=== PATIENT | female | born 1965 | race Caucasian/White ===

== ENCOUNTER → 2020-04-06 08:07 | Outpatient (CLI) | payer BC, SELFPAY ==
[2018-08-02 09:36] VITALS: BMI 27.8
[2020-04-06 08:55] LABS: CRP, High Sensitivity Cardiac 5.81 mg/L
== END ==
PROVIDERS: PCP Family Medicine
DX: E78.5 Hyperlipidemia, unspecified (principal)
CPT/HCPCS: 36415; 84132; 86141

== ENCOUNTER → 2020-07-07 07:40 | Outpatient (CLI) | payer BC, SELFPAY ==
[2018-08-02 09:36] VITALS: BMI 27.8
[2020-07-07 08:47] LABS: AST(SGOT) 15 U/L (15-37); Alanine Aminotransfer ALT/SGPT 41 U/L (13-56); Albumin, Serum 3.8 g/dL (3.2-5.0); Alkaline Phosphatase 133 U/L (45-117); Anion Gap 5 (5-15); BUN 11 mg/dL (7-18); BUN/Creat Ratio 14.8 RATIO (10-20); Calcium,Total 9.1 mg/dL (8.5-10.1); Chloride 106 mmol/L (98-107); Cholesterol 194 mg/dL (200); Creatinine, Serum 0.74 mg/dL (0.55-1.02); EST Glomerular Filtration Rate 86 mL/min (>60); Est Glom Filt Rate - Afr Amer 104 mL/min (>60); Globulin 3.8 g/dL (2.2-4.2); Glucose 104 mg/dL (74-106); High Density Lipoprotein 51 mg/dL; Protein, Total 7.6 g/dL (6.4-8.2); Sodium Level 138 mmol/L (136-145); Triglycerides 284 mg/dL; Very Low Density Lipoprotein 57 mg/dL (5-40)
== END ==
PROVIDERS: PCP Family Medicine; Referring Provider Family Medicine; Visit Provider Family Medicine
DX: E78.2 Mixed hyperlipidemia (principal)
CPT/HCPCS: 36415; 80053; 80061

== ENCOUNTER 2020-09-22 13:03 | Emergency (ER) | payer BC, SELFPAY ==
[2018-08-02 09:36] VITALS: BMI 27.8
[2020-09-22 13:04] VITALS: BP 164/98; PULSE 118; RESP 18; TEMP 36.4; O2SAT 96; BMI 30.9
--- NOTE | 2020-09-22 14:30 | EKG12_ITS ---
Test Reason : CP Blood Pressure : / mmHG Vent. Rate : 108 BPM Atrial Rate : 108 BPM P-R Int : 174 ms QRS Dur : 090 ms QT Int : 336 ms P-R-T Axes : 071 079 038 degrees QTc Int : 450 ms Sinus tachycardia Possible Left atrial enlargement Borderline ECG Confirmed by KYLEE REGALADO, TOMAS ([id number]), editorial clerk JON DAVISON ([id number]) on 09/23/2020 12:42:40 PM Referred By: WILLARD/LYLY Confirmed By:TOMAS PICHARDO MD
[2020-09-22 14:33] VITALS: O2SAT 98
--- NOTE | 2020-09-22 14:38 | NURSING ---
NO OLD EKGS
[2020-09-22 14:55] LABS: Absolute Lymphocyte Count 1.57 X10^3/uL (0.83-4.51); Absolute Neutrophil Count 6.1 X10^3/uL (2.0-7.7); Basophil# 0.05 X10^3/uL; Basophil% 0.6 % (0-1); Eosinophil# 0.04 X10^3/uL; Eosinophils% 0.5 % (0-5); Hemoglobin 14.5 g/dL (12.0-15.0); Lymphocyte # 1.57 X10^3/ul (0.83-4.51); Lymphocyte % 18.8 % (19-41); Mean Corpuscular Hgb 27.1 pg (27.0-32.0); Mean Corpuscular Volume 82.1 fL (81-99); Mean Platelet Vol. 9.1 fl (6.2-12.0); Monocyte# 0.56 X10^3/uL; Monocyte% 6.7 % (0-10); NRBC Flagged by Analyzer 0 % (0-5); Neutrophil # 6.08 X10^3/uL (2.7-7.7); Neutrophil % 72.8 % (47-70); Platelet Count 328 K/mm3 (150-450); RBC Distribution Width CV 13.2 % (11.6-14.6); RBC Distribution Width SD 39.3 fl (35.1-43.9); Red Blood Count 5.36 M/mm3 (4.2-5.4); White Blood Count 8.4 K/mm3 (4.4-11.0)
--- NOTE | 2020-09-22 15:03 | EX.ED.DYSGE1 ---
HPI History of Present Illness Chief Complaint: General Illness Detail of Chief Complaint: Chest pain off and on for a week and a half Informant: patient Narrative Narrative: Patient presents to the emergency department with intermittent chest discomfort just right of center that will come on and intensify and then go away and only lasts a minute or so. Patient states the pain is not exertional. She has not noted any association with breathing or movement. Patient has a hard time describing the discomfort. Today she developed some burning in the center of her chest and noticed that her blood pressure was elevated at work so she comes in for evaluation. She denies recent travel or surgery. 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 Patient denies cough or fever. She has history of high cholesterol. Her father had heart attack in his 60s. Patient denies any radiation of the pain. She denies being diaphoretic. She denies any real shortness of breath. Prior similar symptoms: No PFSH PFSH Medical History (Updated 09/22/20 @ 16:[address] Cb Garcia DO) Arthritis Back pain Bone fracture High cholesterol History of migraine headaches Neck pain Thyroid disease Home Medications atorvastatin 40 mg PO DAILY 09/22/20 [History Last Taken Unknown] Allergy/AdvReac Type Severity Reaction Status Date / Time bee venom protein (honey bee) Allergy Mild X Verified 09/22/20 13:07 erythromycin base Allergy Vomiting Verified 09/22/20 13:07 morphine Allergy Itching Verified 09/22/20 13:07 Influenza Virus Vaccines AdvReac Other Verified 09/22/20 13:07 Family History Father No problems noted. Grandmother Heart disease Surgical History (Updated 09/22/20 @ 14:35 by Franci Patel) [address] [facility] FOOT CYST REMOVAL BREAST AUGMENTATION 1998 History of abdominoplasty PARTIAL HYSTERECTOMY 200 Social History Smoking Status: Former smoker alcohol intake: current alcohol intake frequency: holidays/special occasions only details: SOCIAL substance use type: does not use what type of physical activity do you participate in: none seatbelt use: always do you feel safe at home: Yes additional social history: Spouse Joe Nursing directive [place] ROS ROS ED Constitutional Constitutional ED: Reports systems reviewed and no addt'l complaints, except as documented; Denies body ache(s), change in weight or chills Eyes Eyes: Denies acute decrease in peripheral vision, change in vision, double vision or loss of vision ENT ENT ED: Reports none; Denies ear pain, lip swelling, loss taste/smell, neck pain, otalgia or sore throat Cardiovascular Cardiovascular: Reports none and chest pain; Denies abdominal pain, chest pain with activity, leg edema, lightheadedness, palpitations, rapid heart rate or syncope Respiratory/Chest Respiratory/Chest: Reports none; Denies change in mental status, dry cough, dyspnea, hemoptysis, shortness of breath at rest or shortness of breath with exertion Gastrointestinal Gastrointestinal: Reports none; Denies abdominal pain, change in stool character, diarrhea, hematemesis, hematochezia, melena, rectal bleeding or vomiting Genitourinary Genitourinary ED: Reports none; Denies abdominal discomfort, anuria, dysuria, genital pain or polyuria Musculoskeletal Musculoskeletal: Reports none; Denies arthralgias, back pain, difficulty walking, extremity pain, muscle weakness or myalgias Integumentary Reports none; Denies abscess or rash Neurologic Neurologic: Reports none; Denies abnormal gait, confusion, focal weakness, frequent falls, headache(s), loss of vision, numbness, paresthesias, radicular pain, vertigo or weakness Psychiatric Psychiatric: Reports systems reviewed and no addt'l complaints, except as documented and none; Denies behavioral changes, confusion, difficulty concentrating, hallucinations, suicidal ideation, tactile hallucinations or visual hallucinations Endocrine Endocrinology: Denies none, cold intolerance, excessive sweating, fatigue or heat intolerance Hematologic/Lymphatic Hematologic/Lymphatic: Reports none; Denies anemia, easy bleeding or easy bruising Allergic/Immunologic Allergic/Immunologic ED: Denies as per HPI, none, lip swelling, mouth swelling, throat swelling, tongue swelling or hives EXAM Physical Exam Const Vital Signs: 09/22/20 13:04 09/22/20 14:33 09/22/20 15:34 Temperature 97.6 F L Temperature Source Temporal Pulse Rate 118 H 111 H Respiratory Rate 18 16 Respiratory Effort Normal Non-Labored Respiratory Pattern Normal Blood Pressure 164/98 H 160/85 H Blood Pressure Mean 120 110 Pulse Ox 96 98 95 Oxygen Delivery Method Room Air Room Air Room Air Positive well nourished and well developed General Appearance ED: well developed and NAD HEENT Reports TM's clear and moist mucous membranes normocephalic and atraumatic; Negative for trauma or tenderness Tympanic Membrane ED: Yes TM's clear Eyes PERRL and EOMs intact bilaterally General Eye ED: Negative for pale conjunctiva or scleral icterus Neck no lymphadenopathy, supple and no JVD General: Negative for tenderness Chest Wall inspection of chest normal and palpation of chest normal Chest: Negative for tenderness Resp normal respiratory effort and clear to auscultation bilaterally Effort and Inspection: Negative for respiratory distress or pain with movement Auscultation: Negative for rhonchi, wheezes or diminished lung sounds Cardio regular rate, regular rhythm, S1 normal heart sound, S2 normal heart sound and no murmurs Peripheral Pulses: pulses 2+ throughout GI normal to inspection, nondistended, normoactive bowel sounds, soft to palpation, non-tender, non-distended and no masses Back/Spine no CVA tenderness and no thoracic nor lumbar tenderness Extremity normal to inspection General Extremety ED: Negative for edema General Extremity: Negative for edema Neuro oriented x3, CN's II-XII intact bilaterally, no sensory deficits noted and gait normal Sensorium / Orientation: awake, alert, oriented to person, oriented to place and oriented to time Motor Exam: strength 5/5 throughout and strength abnormal Psych mental status grossly normal Skin no rashes or lesions noted and no wounds MDM MDM MDM Narrative Medical decision making narrative: Patient has heart score of 1. Patient's chest pain is atypical. At this point I do not feel she requires admission or further work-up. Patient advised to follow-up with her primary care physician within next 3 to 5 days. Patient advised to return if exertional chest pain, shortness of breath, or condition should worsen anyway. Lab Data Attestation: I reviewed the patient's lab results. Labs: Laboratory Results - last 24 hr 09/22/20 09/22/20 09/22/20 14:47 14:47 15:33 WBC 8.4 RBC 5.36 Hgb 14.5 Hct 44.0 MCV 82.1 MCH 27.1 MCHC 33.0 RDW Std Deviation 39.3 RDW Coeff of Jase 13.2 Plt Count 328 MPV 9.1 Immature Gran % (Auto) 0.600 Neut % (Auto) 72.8 H Lymph % (Auto) 18.8 L [place] % (Auto) 6.7 Eos % (Auto) 0.5 Baso % (Auto) 0.6 Absolute Neuts (auto) 6.1 Absolute Lymphs (auto) 1.57 Nucleated RBC % 0 D-Dimer Quant (PE/DVT) < 0.27 L Sodium 140 Potassium 4.4 Chloride 107 Carbon Dioxide 26.0 Anion Gap 7 BUN 13 Creatinine 0.78 Estim Creat Clear Calc 62.22 Est GFR (MDRD) Af Amer 99 Est GFR (MDRD) Non-Af 82 BUN/Creatinine Ratio 16.7 Glucose 104 Calcium 9.4 Troponin I High Sens 3.1 Radiography Chest X-Ray - ED: 1 View Diagnostic Testing: Radiology Impression Chest X-Ray 09/22/20 15:05 IMPRESSION: Normal x-ray examination of the chest. Electronically Signed: Herman King MD at 15:20 EDT , Service support , 1 view chest x-ray obtained interpreted by myself as no acute disease process. Radiology in agreement. EKG Initial EKG: Comments: Sinus rhythm with a ventricular rate of 108 bpm with possible left atrial enlargement otherwise nothing acute. Prior EKG tracings: not available for review Discharge Plan Triage Chief Complaint: General Illness ED Provider: Cb Garcia Dx/Rx/DC Orders Clinical Impression: Chest pain of uncertain etiology Instructions: ED Chest Pain, Uncertain Cause Prescriptions: No Action atorvastatin 40 mg tablet 40 mg PO DAILY RF: 0 Primary Care Provider: River Shelby Referrals: River Shelby MD [Primary Care Provider] - 3-5 Days Disposition Disposition: Home, Self Care
--- NOTE | 2020-09-22 15:05 | RAD_ITS ---
STUDY: X-RAY CHEST REASON FOR EXAM: Female, 54 years old. Generalized fatigue. Dizziness and chest pain for one week. TECHNIQUE: Single AP portable view of the chest. COMPARISON: None. FINDINGS: EKG electrodes are seen. The lungs are clear and expanded. There is no demonstrated pleural abnormality. Normal size heart. Normal mediastinum and yves. Normal visualized pulmonary arteries. Normal visualized aortic arch and descending thoracic aorta. Normal visualized thoracic spine. Normal visualized ribs, clavicles, and shoulders. There is no demonstrated abnormality of the visualized soft tissue structures of the upper abdomen. RAD/Chest 1 View (Portable) IMPRESSION: Normal x-ray examination of the chest. Electronically Signed: Herman King MD at 15:20 EDT , Service support ,
[2020-09-22 15:15] LABS: Anion Gap 7 (5-15); BUN 13 mg/dL (7-18); BUN/Creat Ratio 16.7 RATIO (10-20); Calcium,Total 9.4 mg/dL (8.5-10.1); Chloride 107 mmol/L (98-107); Creatinine, Serum 0.78 mg/dL (0.55-1.02); EST Glomerular Filtration Rate 82 mL/min (>60); Est Glom Filt Rate - Afr Amer 99 mL/min (>60); Estimated Creatinine Clearance 62.22 ml/min; Glucose 104 mg/dL (74-106); Potassium 4.4 mmol/L (3.5-5.1); Sodium Level 140 mmol/L (136-145); Troponin-I HS 3.1 pg/mL (3.0-53.7)
[2020-09-22] MEDS: 0.9% Normal Saline 1,000 ML 150 ML IV (15:31)
[2020-09-22] MEDS: Aspirin 81 MG TAB.CHEW 324 MG PO (15:31)
[2020-09-22 15:34] VITALS: BP 160/85; PULSE 111; RESP 16; O2SAT 95
[2020-09-22 16:03] LABS: D-Dimer Quantitative (DVT/PE) < 0.27 FEU/ug/m (0.27-0.49)
[2020-09-22 16:28] VITALS: BP 141/74; PULSE 96; RESP 14; O2SAT 96
== END 2020-09-22 16:32 | disposition home or self-care (01) ==
PROVIDERS: Emergency Provider Emergency Medicine; PCP Family Medicine
DX: R07.9 Chest pain, unspecified (principal); E78.00 Pure hypercholesterolemia, unspecified; Z87.891 Personal history of nicotine dependence; Z79.899 Other long term (current) drug therapy
CPT/HCPCS: 71045; 80048; 84484; 85025; 85379; 93005; 99285; J7030; A4216

== ENCOUNTER → 2021-01-12 08:03 | Outpatient (CLI) | payer BC, SELFPAY ==
[2021-01-12 09:14] LABS: ALB/GLOB Ratio 0.9 RATIO (0.9-2.4); AST(SGOT) 20 U/L (15-37); Albumin, Serum 3.7 g/dL (3.2-5.0); BUN 13 mg/dL (7-18); BUN/Creat Ratio 16.6 RATIO (10-20); Calcium,Total 9.2 mg/dL (8.5-10.1); Creatinine, Serum 0.78 mg/dL (0.55-1.02); EST Glomerular Filtration Rate 81 mL/min (>60); Est Glom Filt Rate - Afr Amer 99 mL/min (>60); Globulin 3.9 g/dL (2.2-4.2); Glucose 100 mg/dL (74-106); Protein, Total 7.6 g/dL (6.4-8.2)
[2021-01-12 09:15] LABS: Alanine Aminotransfer ALT/SGPT 50 U/L (13-56); Alkaline Phosphatase 122 U/L (45-117); Anion Gap 6 (5-15); Chloride 105 mmol/L (98-107); Cholesterol 177 mg/dL (200); High Density Lipoprotein 48 mg/dL; Sodium Level 138 mmol/L (136-145); Triglycerides 226 mg/dL; Very Low Density Lipoprotein 45 mg/dL (5-40)
== END ==
PROVIDERS: PCP Family Medicine; Referring Provider Family Medicine; Visit Provider Family Medicine
DX: E78.2 Mixed hyperlipidemia (principal)
CPT/HCPCS: 36415; 80053; 80061

== ENCOUNTER → 2021-03-02 13:46 | Outpatient (CLI) | payer BC, SELFPAY ==
--- NOTE | 2021-03-02 13:54 | BD_ITS ---
STUDY: DUAL ENERGY X-RAY ABSORPTIOMETRY / DXA REASON FOR EXAM: Female, 55 years old. [id number]. The patient is postmenopausal. TECHNIQUE: Bone Mineral Density (BMD) measurements of lumbar spine and bilateral hips were obtained. COMPARISON: None. FINDINGS: Lumbar Spine (L1-L4): g/cm2 (0.985) / T-score (-0.6) / Z-score (0.5) Findings are suggestive of normal bone density with a low fracture risk. Left Femur Total: g/cm2 (0.908) / T-score (-0.3) / Z-score (0.4) Left Femoral Neck: g/cm2 (0.721) / T-score (-1.2) / Z-score (-0.1) Right Femur Total: g/cm2 (0.960) / T-score (0.1) / Z-score (0.8) Right Femoral Neck: g/cm2 (0.730) / T-score (-1.1) / Z-score (0.0) BD/Dexa Bone Density Study IMPRESSION: The patient is considered osteopenic as outlined below according to World Suresh Organization (WHO) criteria with a low fracture risk. Reference Information: The T-score is the number of standard deviations above or below the standard which is normal for young adults at their peak bone mineral density. The World Health Organization (WHO) interprets the T-scores as follows: Above -1 Normal bone density Between -1 and -2.5 Osteopenia Equal to / or below -2.5 Osteoporosis As a practical clinical guideline, osteopenia may be graded as follows: Mild -1 through -1.5 Moderate -1.6 through -2.0 Severe -2.1 through -2.4 The Z-score is the number of standard deviations above or below age-matched controls. A Z-score of less than -1.5 would be considered abnormal. References: 1. NIH Osteoporosis and Related Bone Diseases www osteo.org 2. International Society for Clinical Densitometry www iscd.org 3. National Osteoporosis Foundation www nof.org Electronically Signed: Herman King MD at 13:56 EST , Service support ,
== END ==
PROVIDERS: PCP Family Medicine; Referring Provider Family Medicine; Visit Provider Family Medicine
DX: Z78.0 Asymptomatic menopausal state (principal)
CPT/HCPCS: 77080

== ENCOUNTER → 2021-09-16 | Outpatient (CLI) | payer OTHER, SELFPAY ==
[2021-09-16 09:09] LABS: ALB/GLOB Ratio 1.1 RATIO (0.9-2.4); AST(SGOT) 24 U/L (15-37); Alanine Aminotransfer ALT/SGPT 51 U/L (13-56); Albumin, Serum 3.9 g/dL (3.2-5.0); Alkaline Phosphatase 120 U/L (45-117); Anion Gap 6 (5-15); BUN 12 mg/dL (7-18); BUN/Creat Ratio 14.3 RATIO (10-20); CPK Total, Creatine Kinase 61 U/L (26-192); Calcium,Total 9.2 mg/dL (8.5-10.1); Chloride 107 mmol/L (98-107); Cholesterol 181 mg/dL (200); Creatinine, Serum 0.84 mg/dL (0.55-1.02); EST Glomerular Filtration Rate 75 mL/min (>60); Est Glom Filt Rate - Afr Amer 90 mL/min (>60); Globulin 3.7 g/dL (2.2-4.2); Glucose 104 mg/dL (74-106); High Density Lipoprotein 49 mg/dL; Potassium 4.3 mmol/L (3.5-5.1); Protein, Total 7.6 g/dL (6.4-8.2); Sodium Level 139 mmol/L (136-145); Thyroid Stim Hormone (TSH) 0.97 uIU/mL (0.358-3.74); Triglycerides 192 mg/dL; Very Low Density Lipoprotein 38 mg/dL (5-40)
[2021-09-16 09:22] LABS: Vitamin D,25 Hydroxy 26.4 ng/mL
== END | disposition home or self-care (01) ==
PROVIDERS: PCP Internal Medicine; Referring Provider Internal Medicine; Visit Provider Internal Medicine
DX: E78.2 Mixed hyperlipidemia (principal); M79.604 Pain in right leg; M79.605 Pain in left leg; E55.9 Vitamin D deficiency, unspecified
CPT/HCPCS: 36415; 80053; 80061; 82306; 82550; 84443

== ENCOUNTER → 2021-11-08 | Outpatient (CLI) | payer OTHER, SELFPAY | END | disposition home or self-care (01) | LOC: LABSPEC 11-09 07:30 | PROVIDERS: PCP Internal Medicine; Visit Provider Obstetrics & Gynecology | DX: N39.0 Urinary tract infection, site not specified (principal) | CPT/HCPCS: 87086 ==

== ENCOUNTER → 2022-01-21 | Outpatient (CLI) | payer OTHER, SELFPAY ==
--- NOTE | 2022-01-21 07:46 | BI_ITS ---
MAMMOGRAPHY - BILATERAL SCREENING REASON FOR EXAM: Female, 56 years old. Routine annual screening examination. PERTINENT HISTORY: Non-contributory. TECHNIQUE: Digital bilateral breast floyd (3D mammographic acquisition) in the CC and MLO projections. 2-D mediolateral oblique (MLO) and craniocaudad (CC) views of both breasts were obtained. CAD: Full Field Digital Mammography with Computer Added Detection was performed. COMPARISON: Comparison is made with prior outside examination dated 12/18/2020. FINDINGS: Breast Composition: There are scattered areas of fibroglandular density. There are no dominant masses or suspicious calcifications. Stable fat-containing bilateral axillary lymph nodes. No other significant abnormalities are identified. There has been no significant change since the prior study. BI/SCRN MAMM (CAD)W/FLOYD BILAT IMPRESSION: Stable bilateral screening mammogram. Yearly follow-up mammogram recommended. (A) ASSESSMENT CATEGORY: BIRADS Category 2: Benign. A letter regarding these results will be sent to the patient by the facility within 30 days. Approximately 10% of breast cancers are not detected by mammography. A normal mammogram should not delay biopsy of a clinically suspicious abnormality. [id number] Electronically Signed: Herman King MD at 8:41 EST ,
== END | disposition home or self-care (01) ==
LOC: OPBI 07:45
PROVIDERS: PCP Internal Medicine; Visit Provider Obstetrics & Gynecology
DX: Z12.31 Encounter for screening mammogram for malignant neoplasm of breast (principal)
CPT/HCPCS: 77063; 77067

== ENCOUNTER → 2022-05-19 | Outpatient (CLI) | payer OTHER, SELFPAY ==
[2022-05-19 09:13] LABS: Vitamin D,25 Hydroxy 25.7 ng/mL
[2022-05-19 09:19] LABS: Cholesterol 263 mg/dL (200); Glucose 108 mg/dL (74-106); High Density Lipoprotein 49 mg/dL; T4 Free Direct 0.93 ng/dL (0.76-1.46); Thyroid Stim Hormone (TSH) 0.95 uIU/mL (0.358-3.74); Triglycerides 235 mg/dL; Very Low Density Lipoprotein 47 mg/dL (5-40)
[2022-05-20 15:08] LABS: Thyroid Peroxidase AB 9 IU/mL (0-34)
[2022-05-20 15:26] LABS: Thyroglobulin Antibody < 1.0 IU/mL (0.0-0.9)
== END | disposition home or self-care (01) ==
LOC: PAVLAB 08:24
PROVIDERS: PCP Internal Medicine; Referring Provider Nurse Practitioner Women's Health; Visit Provider Nurse Practitioner Women's Health
DX: Z13.1 Encounter for screening for diabetes mellitus (principal); R63.5 Abnormal weight gain; Z13.220 Encounter for screening for lipoid disorders
CPT/HCPCS: 36415; 80061; 82306; 82947; 84439; 84443; 86376; 86800

== ENCOUNTER → 2022-05-20 | Outpatient (CLI) | payer OTHER, SELFPAY ==
[2022-05-20 10:32] LABS: Absolute Lymphocyte Count 2.45 X10^3/uL (0.83-4.51); Absolute Neutrophil Count 3.1 X10^3/uL (2.0-7.7); Basophil# 0.04 X10^3/uL; Basophil% 0.6 % (0-1); Eosinophil# 0.19 X10^3/uL; Hematocrit 43.6 % (37-47); Hemoglobin 14.2 g/dL (12.0-15.0); Lymphocyte # 2.45 X10^3/ul (0.83-4.51); Lymphocyte % 38.5 % (19-41); Mean Corp Hgb Conc 32.6 g/dL (32-36); Mean Corpuscular Hgb 27.8 pg (27.0-32.0); Mean Corpuscular Volume 85.3 fL (81-99); Mean Platelet Vol. 8.9 fl (6.2-12.0); Monocyte# 0.56 X10^3/uL; Monocyte% 8.8 % (0-10); NRBC Flagged by Analyzer 0 % (0-5); Neutrophil # 3.09 X10^3/uL (2.7-7.7); Neutrophil % 48.6 % (47-70); Platelet Count 327 K/mm3 (150-450); RBC Distribution Width CV 12.9 % (11.6-14.6); RBC Distribution Width SD 39.9 fl (35.1-43.9); Red Blood Count 5.11 M/mm3 (4.2-5.4); White Blood Count 6.4 K/mm3 (4.4-11.0)
[2022-05-20 11:05] LABS: Hemoglobin A1c 5.5 % (3.8-5.6)
== END | disposition home or self-care (01) ==
LOC: PAVLAB 10:21
PROVIDERS: PCP Internal Medicine; Referring Provider Nurse Practitioner Women's Health; Visit Provider Nurse Practitioner Women's Health
DX: Z01.419 Encounter for gynecological examination (general) (routine) without abnormal findings (principal); R73.09 Other abnormal glucose
CPT/HCPCS: 36415; 83036; 85025

== ENCOUNTER → 2022-06-21 | Outpatient (CLI) | payer OTHER, SELFPAY | END | disposition home or self-care (01) | LOC: PSN 13:02 | PROVIDERS: PCP Internal Medicine; Referring Provider Obstetrics & Gynecology; Visit Provider Obstetrics & Gynecology | DX: E88.81 Metabolic syndrome and other insulin resistance (principal) | CPT/HCPCS: 93005 ==

== ENCOUNTER 2022-07-26 12:00 | Outpatient (RCR) | payer OTHER, SELFPAY | END 2022-08-10 23:59 | LOC: NS 12:00 | PROVIDERS: PCP Internal Medicine; Referring Provider Obstetrics & Gynecology; Visit Provider Obstetrics & Gynecology | DX: Z71.3 Dietary counseling and surveillance (principal); E88.81 Metabolic syndrome and other insulin resistance; E78.00 Pure hypercholesterolemia, unspecified; Z68.30 Body mass index [BMI] 30.0-30.9, adult | CPT/HCPCS: 97802 ==

== ENCOUNTER 2022-08-16 12:04 | Outpatient (RCR) | payer OTHER, SELFPAY | END 2022-09-09 23:59 | LOC: NS 12:04 | PROVIDERS: PCP Internal Medicine; Referring Provider Obstetrics & Gynecology; Visit Provider Obstetrics & Gynecology | DX: Z71.3 Dietary counseling and surveillance (principal); E78.00 Pure hypercholesterolemia, unspecified; E88.81 Metabolic syndrome and other insulin resistance | CPT/HCPCS: 97803 ==

== ENCOUNTER → 2022-08-18 | Outpatient (CLI) | payer OTHER, SELFPAY ==
[2022-08-18 08:49] LABS: Cholesterol 219 mg/dL (200); High Density Lipoprotein 47 mg/dL; Triglycerides 232 mg/dL; Very Low Density Lipoprotein 46 mg/dL (5-40)
[2022-08-18 09:30] LABS: Vitamin D,25 Hydroxy 66.5 ng/mL
== END | disposition home or self-care (01) ==
LOC: PAVLAB 07:56
PROVIDERS: PCP Internal Medicine; Referring Provider Internal Medicine; Visit Provider Internal Medicine
DX: E78.2 Mixed hyperlipidemia (principal); E55.9 Vitamin D deficiency, unspecified
CPT/HCPCS: 36415; 80061; 82306

== ENCOUNTER → 2023-03-21 | Outpatient (CLI) | payer OTHER, SELFPAY ==
--- NOTE | 2023-03-21 13:00 | BI_ITS ---
MAMMOGRAPHY - BILATERAL SCREENING REASON FOR EXAM: Female, 57 years old. Routine annual screening examination. PERTINENT HISTORY: Non-contributory. History of prior bilateral breast implants and removal. TECHNIQUE: Digital bilateral breast floyd (3D mammographic acquisition) in the CC and MLO projections. 2-D mediolateral oblique (MLO) and craniocaudad (CC) views of both breasts were obtained. CAD: Full Field Digital Mammography with Computer Added Detection was performed. COMPARISON: Comparison is made with prior study January 21, 2022. FINDINGS: Breast Composition: There are scattered areas of fibroglandular density. There are no dominant masses or suspicious calcifications. Stable fat-containing bilateral axillary lymph nodes. No other significant abnormalities are identified. There has been no significant change since the prior study. BI/SCRN MAMM (CAD)W/FLOYD BILAT IMPRESSION: Stable bilateral screening mammogram. Yearly follow-up mammogram recommended. (A) ASSESSMENT CATEGORY: BIRADS Category 2: Benign. A letter regarding these results will be sent to the patient by the facility within 30 days. Approximately 10% of breast cancers are not detected by mammography. A normal mammogram should not delay biopsy of a clinically suspicious abnormality. [id number] Electronically Signed: Herman King MD at 9:15 EST ,
--- OUTSIDE RECORDS SUMMARY | 2023-03-21 15:02 | XMS RPT_ITS | CCD ---
Author Name Unknown Address [address] [place] [address] Organization [facility] Care Team Providers Care Crust Sorter Name Role Phone River Shelby Primary Care Provider Results Test Name Value Interpretation Reference Range Facil ity Encounters Encounter Date Encounter Type Care Provider Facility Start: 12-18-2020 End: 12-18-2020 Subsequent hospital visit by physician River Shelby MD Work Phone: [facility] Procedures Date Procedure Procedure Detail Performing Clinician Start: 12-18-2020 Screening digital br east tomosynthesis bi River Shelby MD Work Phone: Plan of Treatment Date Care Activity Detail Author Start: 12-15-2021 Screening for malign ant neoplasm of breast Breast cancer screen [facility] Work Phone: Start: 11-11-2020 Influenza vaccination Flu vaccine (# 1) [facility] Work Phone: Start: 11-16-2019 Screening for malign ant neoplasm of breast Breast cancer screen [place], [place] Start: 11-12-2019 Influenza vaccination Flu vaccine (# 1) [place] Start: 12-29-2015 Screening for malign ant neoplasm of colon Colon cancer screen colonoscopy [place], [place] Start: 12-29-2015 Shingles Vaccine (1 of 2) Rose gles Vaccine (1 of 2) [place], [place] Start: 2010 Screening for malign ant neoplasm of colon Colon cancer screen colonoscopy [facility] Work Phone: Start: 2005 Lipid panel Lipid screen [place], [place] Start: 12-29-1995 Screening for malign ant neoplasm of cervix [facility] Work Phone: Start: 1986 Screening for malign ant neoplasm of cervix [place], [place] Start: 1984 DTaP/Tdap/Td vaccine (1 - Tdap) DTaP/Tdap/Td vaccine (1 - Tdap) [place], [place] Start: 1980 [facility] [place] [place] Start: 1977 COVID-19 Vaccine (1) COVID-19 Vaccin e (1) [facility] Work Phone: Start: 1965 Hepatitis C screening Hepatitis C sc reen [facility] Work Phone: End: 12-16-2019 Screening digital breast tomosynthesis bi [facility] Digital Screen Bilateral Imaging Routine Once for 1 Occurrences starting 12/16/2019 until 12/16/2019 [place], [place] Social History Date Type Detail Facility Tobacco smoking stat us [facility] Unknown if ever smoked [place], [place] Start: 1965 Sex Assigned At Not on file [place], [place] Advance Directives No Advanced Directives Records FoundDocuments on File Type Date Recorded 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 This clinical summary was aggregated from multiple sources. Caution should be exercised in using it in the provision of clinical care. This summary normalizes information from multiple sources, and as a consequence, information in this document may materially change the coding, format and clinical context of patient data. In addition, data may be omitted in some cases. CLINICAL DECISIONS SHOULD BE BASED ON THE PRIMARY CLINICAL RECORDS. [employer] provides no warranty or guarantee of the accuracy or completeness of information in this document.
== END | disposition home or self-care (01) ==
LOC: OPBI 13:00
PROVIDERS: PCP Internal Medicine; Referring Provider Nurse Practitioner Women's Health; Visit Provider Nurse Practitioner Women's Health
DX: Z12.31 Encounter for screening mammogram for malignant neoplasm of breast (principal)
CPT/HCPCS: 77063; 77067

== ENCOUNTER → 2023-05-04 | Outpatient (CLI) | payer OTHER, SELFPAY ==
[2023-05-04 12:32] LABS: Absolute Lymphocyte Count 2.36 X10^3/uL (0.83-4.51); Absolute Neutrophil Count 2.9 X10^3/uL (2.0-7.7); Basophil# 0.05 X10^3/uL; Basophil% 0.8 % (0-1); Eosinophil# 0.14 X10^3/uL; Eosinophils% 2.4 % (0-5); Hematocrit 44.7 % (37-47); Hemoglobin 14.5 g/dL (12.0-15.0); Lymphocyte # 2.36 X10^3/ul (0.83-4.51); Lymphocyte % 39.8 % (19-41); Mean Corp Hgb Conc 32.4 g/dL (32-36); Mean Corpuscular Hgb 27.5 pg (27.0-32.0); Mean Corpuscular Volume 84.8 fL (81-99); Mean Platelet Vol. 9.7 fl (6.2-12.0); Monocyte# 0.45 X10^3/uL; Monocyte% 7.6 % (0-10); NRBC Flagged by Analyzer 0 % (0-5); Neutrophil # 2.92 X10^3/uL (2.7-7.7); Neutrophil % 49.2 % (47-70); Platelet Count 326 K/mm3 (150-450); RBC Distribution Width CV 13.1 % (11.6-14.6); RBC Distribution Width SD 40.1 fl (35.1-43.9); Red Blood Count 5.27 M/mm3 (4.2-5.4); White Blood Count 5.9 K/mm3 (4.4-11.0)
[2023-05-04 12:46] LABS: D-Dimer Quantitative (DVT/PE) < 0.27 FEU/ug/m (0.27-0.49)
[2023-05-04 13:06] LABS: Vitamin D,25 Hydroxy 57.1 ng/mL
[2023-05-04 13:08] LABS: ALB/GLOB Ratio 1.1 RATIO (0.9-2.4); AST(SGOT) 20 U/L (15-37); Alanine Aminotransfer ALT/SGPT 41 U/L (13-56); Albumin, Serum 4.2 g/dL (3.2-5.0); Alkaline Phosphatase 91 U/L (45-117); Anion Gap 5 (5-15); BUN 16 mg/dL (7-18); BUN/Creat Ratio 22.4 RATIO (10-20); CPK Total, Creatine Kinase 53 U/L (26-192); Calcium,Total 9.7 mg/dL (8.5-10.1); Chloride 107 mmol/L (98-107); Cholesterol 271 mg/dL (200); Creatinine, Serum 0.71 mg/dL (0.55-1.02); EST Glomerular Filtration Rate 90 mL/min (>60); Est Glom Filt Rate - Afr Amer 108 mL/min (>60); Globulin 3.8 g/dL (2.2-4.2); Glucose 99 mg/dL (74-106); High Density Lipoprotein 55 mg/dL; Potassium 4.6 mmol/L (3.5-5.1); Sodium Level 138 mmol/L (136-145); Triglycerides 192 mg/dL; Very Low Density Lipoprotein 38 mg/dL (5-40)
--- NOTE | 2023-05-04 14:55 | RAD_ITS ---
INDICATION: right sided chest pain EXAMINATION/TECHNIQUE: X-RAY - XR Chest 2 Views COMPARISON: No relevant prior comparison study available FINDINGS: LINES/DEVICES: None. LUNGS: No consolidation, edema or effusion. No pneumothorax. MEDIASTINUM AND CARDIOVASCULAR STRUCTURES: Cardiac silhouette not enlarged. Central airways and mediastinal contour are unremarkable. BONES AND SOFT TISSUES: Unremarkable. RAD/Chest PA and Lateral IMPRESSION: No radiographic evidence of acute cardiopulmonary disease. Electronically Signed: Serafin Bronson MD at 11:20 EST ,
== END | disposition home or self-care (01) ==
PROVIDERS: PCP Internal Medicine; Referring Provider Internal Medicine; Visit Provider Internal Medicine
DX: R07.9 Chest pain, unspecified (principal); E78.2 Mixed hyperlipidemia; E55.9 Vitamin D deficiency, unspecified; I10 Essential (primary) hypertension
CPT/HCPCS: 36415; 71046; 80053; 80061; 82306; 82550; 85025; 85379

== ENCOUNTER → 2023-07-04 | Outpatient (CLI) | payer OTHER, SELFPAY ==
--- NOTE | 2023-07-04 14:01 | BD_ITS ---
STUDY: DUAL ENERGY X-RAY ABSORPTIOMETRY / DXA REASON FOR EXAM: Female, 57 years old. Osteopenia TECHNIQUE: Bone Mineral Density (BMD) measurements of lumbar spine and bilateral hips were obtained. COMPARISON: Comparison is made with prior study dated March 02, 2021. FINDINGS: Lumbar Spine (L1-L4): g/cm2 (1.044) / T-score (0.0) / Z-score (1.2) Findings are suggestive of normal bone density with a low fracture risk. Left Femur Total: g/cm2 (0.907) / T-score (-0.3) / Z-score (0.5) Left Femoral Neck: g/cm2 (0.749) / T-score (-0.9) / Z-score (0.3) Right Femur Total: g/cm2 (0.931) / T-score (-0.1) / Z-score (0.7) Right Femoral Neck: g/cm2 (0.723) / T-score (-1.1) / Z-score (0.0) The T-Scores on the most recent prior examination were: Lumbar Spine (L1-L4): There has been improvement of bone density since the previous examination. Left Femur Total: which represents no significant change. . Right Femur Total: which represents a worsening of 3%. BD/Dexa Bone Density Study IMPRESSION: The patient is considered osteopenic as outlined below according to World Suresh Organization (WHO) criteria with a low fracture risk. There has been improvement of bone density since the previous examination. Reference Information: The T-score is the number of standard deviations above or below the standard which is normal for young adults at their peak bone mineral density. The World Health Organization (WHO) interprets the T-scores as follows: Above -1 Normal bone density Between -1 and -2.5 Osteopenia Equal to / or below -2.5 Osteoporosis As a practical clinical guideline, osteopenia may be graded as follows: Mild -1 through -1.5 Moderate -1.6 through -2.0 Severe -2.1 through -2.4 The Z-score is the number of standard deviations above or below age-matched controls. A Z-score of less than -1.5 would be considered abnormal. References: 1. NIH Osteoporosis and Related Bone Diseases www osteo.org 2. International Society for Clinical Densitometry www iscd.org 3. National Osteoporosis Foundation www nof.org Electronically Signed: Herman King MD at 13:27 EDT ,
== END | disposition home or self-care (01) ==
LOC: OPBD 13:58
PROVIDERS: PCP Internal Medicine; Referring Provider Nurse Practitioner Women's Health; Visit Provider Nurse Practitioner Women's Health
DX: M85.80 Other specified disorders of bone density and structure, unspecified site (principal)
CPT/HCPCS: 77080

== ENCOUNTER 2023-07-27 17:30 | Outpatient (RCR) | payer OTHER, SELFPAY ==
--- NOTE | 2023-06-27 14:02 | HP.PTEVAL ---
Patient's Visit Information Visit Information Visit Information: JOHN ORTIZ is a 57 year old F referred to Physical Therapy by Dr. Melany Nichols MD with a diagnosis of PAIN IN RIGHT ARM. Date of Evaluation: 06/27/23 Physical Therapist: Daniel Lozano, PT, Cert MDT, OCS Visit Plan Frequency: 2x /Week Duration: 4 Weeks Plan: PT INTERVENTIONS GRADED ECCENTRICS STRENGTHENING ELBOW 3 WAYS ,ECCENTRIC WRIST EXTENSOR/SUPINATORS ,ADD RTC/POSTURAL EX' ,US /CP/MHP AND MANUAL THERAPY (STM) Subjective Subjective: This 57 y/o male presents to physical therapy with right arm pain. This patient developed right elbow pain but progressively worse in hand and elbow. Patient tennis elbow,tennis and K -tape. Pain was insidious onset waking up in morning. Patient seen DR thought to have tendonitis. Patient slowly getting better . Patient pain pain believes pain caused from on mouse on computer. Pain located elbow today along with tenderness in shoulder. Patient denies paresthesia/tingling .Right hand dominant. No diagnostics. Aggravating rotating supination/pronation , lifting [place] . Alleviating factors rest ,tried week of prednisone medrol dose helped day then 1st day off pain increased. Patient pain affects sleeping initially. Patient condition affects QOL ,job demands,gardening.Patient c/o weakness in arm with [place] activities, Goals less pain and get stronger. VOCATION: Triage Nurse SOCIAL: Pain Right Elbow: Pain Intensity (Out of 10): 3 Comment: movement Right Shoulder: Pain Intensity (Out of 10): 1 Pain Intensity Range: 10 Objective Objective: POSTURE: rounded shoulders head forward NEURO: denies paresthesia/tingling ,reflexes C5-6-7 1/3 PALAPTION: distal bicep tendon, supinators ,extensors forearm /lateral epicondyle AROM: elbow AROM 0-130 degrees pain ER , wrist extension 80 degrees ,flexion 80 degrees ,supination 80 degrees sore ,pronation 90 MMT: bicep brachi 32.1,brachioradialis 17.3,brachilis 25.2 ,wrist extensors 22.8 ,supinations 11.7 , DATA MANAGEMENT SPECIALIST STRENGTH: 50# right Special Tests R Elbow Valgus Stress Test - MCL Instability: Negative R Elbow Varus Stress Stest - MCL Instability: Negative R Elbow Biceps Squeeze - Rupture Biceps: Negative R Elbow Lat Epiconylitis - as named: Positive Comments: bicep distal tendonits Balance/Special Test Scores Quick DASH Score: 50.0000 Goals Goal 1:: Patient to be I with HEP and eccentrics Goal Time Frame: 4-6 Weeks Goal 2:: Patient to demonstrate 70% improvement with les pain and improved function . Goal Time Frame: 4-6 Weeks Goal 3:: Patient improve peak force biceps and wrist extensors by 10 # strength to improve function Goal Time Frame: 4-6 Weeks Goal 4:: Patient to improve quick dash by 5 points to improve function Goal Time Frame: 4-6 Weeks Goal 5:: Patient to improve JOB demands and housework tasks with min limitation Goal Time Frame: 4-6 Weeks Rehabilitation Potential Physical Therapy Diagnosis: This patient appears to have distal bicep tendinopathy all 3 heads along with lateral epicondylitis with symptom referring proximal and distal from elbow with weakness ,TTP , pain with ROM affecting lifting job demands and housework tasks thus patient to benefit from skilled PT Rehabilitation Potential: Good Anticipated Interventions Patient/Client Instruction: Educate patient on: Condition and Plan of Care For the Purpose of:: To decrease pain, To increase ROM, To improve muscle performance and motor function, To increase tolerance to activity/condition/position, To improve performance and independence with ADL's, To improve ability of physical actions for home/community/work/leisure, To improve health of tissue, To decrease soft tissue restriction, To increase flexibility/ROM and To reduce risk of recurrence Therapeutic Exercise to Include: Strength training, Postural training, Flexibilty training and Active ROM Comment: BICEPS,WRIST ,RTC For the Purpose of:: To decrease pain, To improve muscle performance and motor function, To increase tolerance to activity/condition/position, To improve performance and independence with ADL's, To improve ability of physical actions for home/community/work/leisure, To improve gait and locomotor functions, To improve health of tissue, To decrease soft tissue restriction, To increase flexibility/ROM and To reduce risk of recurrence Manual Therapy Techniques to Include: Mobilization and Soft tissue mobilization Comment: ELBOW For the Purpose of:: To decrease pain, To improve nutrient delivery to tissue, To increase oxygenation perfusion, To improve health of tissue and To decrease soft tissue restriction TENS: Yes IF ES: Yes Cryotherapy (ice pack, ice massage): Yes Thermo therapy (hot pack): Yes Ultrasound (thermal/non thermal): Yes For the Purpose of:: To decrease pain, To increase ROM, To improve muscle performance and motor function, To increase tolerance to activity/condition/position, To improve ability of physical actions for home/community/work/leisure, To improve health of tissue, To decrease soft tissue restriction, To increase flexibility/ROM and To improve tolerance to ADL's Text: Thank you for the opportunity to evaluate your patient. For Medicare and Medicare HMO plans, please review the plan of care and approve it. It will need to be FAXED BACK to us at [phone] for Medicare purposes. For Medicare only, by signing this I certify the plan of care. Please let me know if there are questions or concerns regarding this plan of care. Physician Signature: Date:
--- NOTE | 2023-07-27 18:11 | HP.PTDCSUM ---
Discharge Summary D/C summary: It has been my pleasure to treat JOHN ORTIZ referred by Dr. Melany Nichols MD, with the diagnosis of PAIN IN RIGHT ARM for a total of 6 visit(s). Discharge Date: Please see the following information for a summary of their discharge status. Subjective Subjective: Doing well ready for d/c Pain Right Elbow: Pain Intensity (Out of 10): 1 Right Shoulder: Pain Intensity (Out of 10): 1 Overall Improvement % Improvement: 90 Objective Objective/Function: OSTURE: rounded shoulders head forward NEURO: denies paresthesia/tingling ,reflexes C5-6-7 03/15 PALAPTION: distal bicep tendon, supinators ,extensors forearm /lateral epicondyle AROM: elbow AROM 0-130 degrees pain ER , wrist extension 80 degrees ,flexion 80 degrees ,supination 80 degrees sore ,pronation 90 MMT: bicep brachi 43.3,brachioradialis 43.7,brachilis 49.6 ,wrist extensors 24.8 ,supinations. 23. 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 Goal Progress: Goal Met Goal 3:: Patient improve peak force biceps and wrist extensors by 10 # strength to improve function Goal 4:: Patient to improve quick dash by 5 points to improve function Goal Progress: Goal Met Goal 5:: Patient to improve JOB demands and housework tasks with min limitation Goal Progress: Goal Met Plan Plan: D/C MEET GOALS D/C Information d/c sentence: If there are questions or concerns regarding this patient's physical therapy, please feel free to call me at [phone]. Thank you for the referral of this patient. Sincerely, Daniel Lozano, PT, Cert MDT, OCS Balance/Gait/Functional tests Balance/Special Test Scores Quick DASH Score: 9.0900 Improvement % Improvement: 90
== END 2023-07-27 19:00 | disposition home or self-care (01) ==
LOC: PT 17:30
PROVIDERS: PCP Internal Medicine; Referring Provider Internal Medicine; Visit Provider Internal Medicine
DX: M79.601 Pain in right arm (principal)
CPT/HCPCS: 97035; 97110; 97162; 97530

== ENCOUNTER → 2023-11-24 | Outpatient (CLI) | payer OTHER, SELFPAY ==
[2023-11-24 12:42] LABS: Absolute Lymphocyte Count 2.57 X10^3/uL (0.83-4.51); Absolute Neutrophil Count 2.4 X10^3/uL (2.0-7.7); Basophil# 0.05 X10^3/uL; Basophil% 0.9 % (0-1); Eosinophil# 0.14 X10^3/uL; Eosinophils% 2.5 % (0-5); Hematocrit 42.5 % (37-47); Hemoglobin 13.8 g/dL (12.0-15.0); Lymphocyte # 2.57 X10^3/ul (0.83-4.51); Lymphocyte % 45.2 % (19-41); Mean Corp Hgb Conc 32.5 g/dL (32-36); Mean Corpuscular Hgb 27.5 pg (27.0-32.0); Mean Corpuscular Volume 84.8 fL (81-99); Mean Platelet Vol. 9.7 fl (6.2-12.0); Monocyte# 0.53 X10^3/uL; Monocyte% 9.3 % (0-10); NRBC Flagged by Analyzer 0 % (0-5); Neutrophil # 2.38 X10^3/uL (2.7-7.7); Neutrophil % 41.7 % (47-70); Platelet Count 301 K/mm3 (150-450); RBC Distribution Width CV 13.2 % (11.6-14.6); RBC Distribution Width SD 41.1 fl (35.1-43.9); Red Blood Count 5.01 M/mm3 (4.2-5.4); White Blood Count 5.7 K/mm3 (4.4-11.0)
[2023-11-24 13:23] LABS: AST(SGOT) 19 U/L (15-37); Alanine Aminotransfer ALT/SGPT 38 U/L (13-56); Albumin, Serum 3.9 g/dL (3.2-5.0); Alkaline Phosphatase 88 U/L (45-117); Anion Gap 9 (5-15); BUN 15 mg/dL (7-18); BUN/Creat Ratio 19.8 RATIO (10-20); Calcium,Total 9.7 mg/dL (8.5-10.1); Chloride 105 mmol/L (98-107); Cholesterol 204 mg/dL (200); Creatinine, Serum 0.76 mg/dL (0.55-1.02); EST Glomerular Filtration Rate 84 mL/min (>60); Est Glom Filt Rate - Afr Amer 101 mL/min (>60); Globulin 3.8 g/dL (2.2-4.2); Glucose 103 mg/dL (74-106); High Density Lipoprotein 50 mg/dL; Potassium 4.7 mmol/L (3.5-5.1); Protein, Total 7.7 g/dL (6.4-8.2); Sodium Level 139 mmol/L (136-145); Triglycerides 134 mg/dL; Very Low Density Lipoprotein 27 mg/dL (5-40)
== END | disposition home or self-care (01) ==
LOC: BIMLAB 08:18
PROVIDERS: PCP Internal Medicine; Referring Provider Physician Assistant; Visit Provider Physician Assistant
DX: I10 Essential (primary) hypertension (principal); E78.2 Mixed hyperlipidemia; E07.9 Disorder of thyroid, unspecified
CPT/HCPCS: 36415; 80053; 80061; 84443; 85025

== ENCOUNTER 2024-01-08 23:23 | Emergency (ER) | payer OTHER, SELFPAY ==
[2024-01-08 23:24] VITALS: BP 173/94; PULSE 120; RESP 16; TEMP 36.6; O2SAT 99; BMI 30.2
[2024-01-09 00:03] VITALS: BP 173/88; PULSE 112; RESP 18; O2SAT 100
--- NOTE | 2024-01-09 00:09 | EDS_ITS ---
HPI History of Present Illness Chief Complaint: Hypertension [facility] Medical History High triglycerides Generalized headaches UTI (urinary tract infection) Neck pain Arthritis Thyroid disease High cholesterol History of migraine headaches Bone fracture Back pain Home Medications ?Medication ?Instructions ?Recorded ?Last Taken ?Type cholecalciferol (vitamin D3) 50 50 mcg PO DAILY 09/02/21 Unknown History mcg (2,000 unit) capsule (Vitamin D3) ascorbate calcium (vitamin C) 500 500 mg PO DAILY 05/30/22 Unknown History mg tablet omega-3 fatty acids 1,000 mg 1,000 mg PO DAILY 05/30/22 Unknown History capsule lisinopril 5 mg tablet 2.5 mg (1/2 x 5 mg) PO BID #60 tabs 07/24/23 Unknown Rx lovastatin 20 mg tablet See Rx Instructions PO QDAY #135 07/27/23 Unknown Rx tabs aspirin 81 mg chewable tablet 81 mg PO QDAY 12/27/23 Unknown History coenzyme Q10 60 mg tablet 60 mg PO QDAY 12/27/23 Unknown History meloxicam 15 mg tablet 15 mg PO QDAY #30 tabs 12/27/23 Unknown Rx prednisone 10 mg tablet 10 mg PO TID #15 tabs 12/27/23 Unknown Rx Allergy/AdvReac Type Severity Reaction Status Date / Time bee venom protein (honey bee) Allergy Mild X Verified 01/08/24 23:25 erythromycin base Allergy Vomiting Verified 01/08/24 23:25 morphine Allergy Itching Verified 01/08/24 23:25 adhesive AdvReac Intermediate Hives Verified 01/08/24 23:25 Influenza Virus Vaccines AdvReac Other Verified 01/08/24 23:25 Family History Father Angina at rest Arthritis Myocardial infarction High cholesterol Skin cancer Grandmother Heart disease Angina at rest CVA (cerebral vascular accident) Mother Hypertension High cholesterol Osteoporosis Multiple sclerosis Grandfather Cancer lung ALS (amyotrophic lateral sclerosis) Sister Thyroid disorder hypothyroidism Surgical History History of back surgery History of abdominoplasty History of abdominoplasty 2014 HT FOOT CYST REMOVAL PARTIAL HYSTERECTOMY 200 BREAST AUGMENTATION 1998 Social History household members: spouse current occupational status: employed current occupation: [employer] Smoking Status: Former smoker quit date: 03/13/99 pack-years: 10 Electronic Cigarette Use: not used how long ago did patient quit smoking: Quit 25 years ago 1/2 - 1 pack per day alcohol intake: current alcohol intake frequency: holidays/special occasions only details: Occasional less than once a year Wine and Wis[place] substance use type: does not use what type of physical activity do you participate in: walking frequency: 3-4 times per week seatbelt use: always do you feel safe at home: Yes additional social history: Spouse Joe RN-[employer] EXAM Physical Exam Const Vital Signs: 01/08/24 23:24 01/09/24 00:01 01/09/24 00:03 Temperature 97.8 F Temperature Source Oral Pulse Rate 120 H 112 H Respiratory Rate 16 18 Respiratory Effort Normal Non-Labored Respiratory Pattern Normal Blood Pressure 173/94 H 173/88 H Blood Pressure Mean 120 116 Pulse Ox 99 100 Oxygen Delivery Method Room Air Room Air 01/09/24 02:27 Temperature Temperature Source Pulse Rate 97 Respiratory Rate 18 Respiratory Effort Respiratory Pattern Blood Pressure 151/90 H Blood Pressure Mean 110 Pulse Ox 96 Oxygen Delivery Method Room Air MDM MDM MDM Narrative Medical decision making narrative: HISTORY OF PRESENT ILLNESS: 58-year-old female presents with headache, elevated blood pressure. Notes her blood pressure was 191/85. Notes she took an extra dose of her lisinopril to 5 mg. She notes a mild headache that is frontal consistent with prior headaches that started earlier this morning. No syncope, seizures or falls. No vomiting, focal weakness endorsed. Denies chest pain or shortness of breath associated. EXTR edema. Denies changes to urinary habits. Patient denies sudden onset or thunderclap headache, denies maximal intensity within 1 minute, vomiting, neck pain, stiffness, changes in vision, fever, his tory malignancy, syncope, or seizures associated with headache. REVIEW OF SYSTEMS: Pertinent positives: Headache, elevated blood pressure Pertinent negatives: Focal weakness, chest pain, leg swelling PHYSICAL EXAM: Nursing triage notes reviewed, Vital signs reviewed Constitutional: please see mdm HENT: MMM Eyes: Pupils equal round and reactive to light, Extraocular muscles intact Neck: No stridor, no JVD, full neck ROM Lungs: Clear to auscultation, No wheezing or rales. No increased work of breathing, no conversational dyspnea, no accessory muscle use, no nasal flaring. No respiratory distress noted Heart: Regular rate and rhythm, No murmurs, No rubs and No gallops, 2+ distal pulses (radial, femoral, posterior tibial) in all extremities Abdomen: Soft, there is no tenderness, rigidity, rebound or guarding, no obvious peritoneal signs, no palpable pulsatile abdominal masses, no auscultated abdominal bruit : No CVAT Extremities: No edema Neuro: Alert and oriented x3, neuro exam at baseline, cranial nerves II through XII are intact. No pain with extraocular muscle movement. There is negative test of skew. 5 of 5 strength in upper and lower extremities in flexion exten maycol. Intact sensation to light touch in upper and lower extremity dermatomes. No truncal or extremity ataxia. No dysdiadochokinesia. Normal gait. 2+ reflexes in upper and lower extremities. No meningeal signs. Negative Babinski. NIH of 0. Skin: No rash or lesions noted MEDICAL DECISION MAKING: Chief Complaint: Headache External records reviewed: Reviewed the patient's medications Factors affecting care: hypertension Social determinants of health: none History obtained from others: none Consults: none [facility] Narrative: Patient was initially hypertensive with a blood pressure 173/88, tachycardic with a heart rate of 112 otherwise afebrile and nontoxic appearing. Exam without focal cardiopulmonary maladies. No focal neurologic deficits. NIH of 0. The patient's clinical exam was not consistent with intracranial abnormality. Medication for advanced imaging of the brain such as CT scan of the head at this time. I considered the following differential diagnosis: ICH, endorgan dysfunction, ACS, arrhythmia, CHF, kidney damage I obtained a broad lab and imaging workup to further elucidate the etiology of patient complaint. ALL IMAGES (IF OBTAINED) HAVE BEEN PERSONALLY REVIEWED AND INTERPRETED BY MYSELF. EKG with sinus tachycardia rate of 104, normal axis, normal intervals, no STEMI CBC without leukocytosis, severe anemia, no thrombocytopenia. BMP without evidence of significant electrolyte abnormalities, no anion gap, no acute kidney injury. High-sensitivity troponin is negative, no evidence of myocardial ischemia I have personally reviewed the patient's chest x-ray. Chest x-ray is unremarkable for pulmonary edema, pneumothorax, pneumonia or focal cardiopulmonary abnormality. On reevaluation patient's blood pressure improved to 151/90. Heart rate improved to 97 no sign of endorgan damage. Patient's appropriate for discharge home The patient and/or family, caregivers express understanding. The patient and/or family, caregivers agrees with the plan. Shared decision making: I will have a discussion with the patient and or visitors regarding risk/benefits of further testing or admission. They will be made aware of of the risk/benefits inherent in this decision they will be given the opportunity to voice understanding. Total critical care time today provided was at least 0 [] minutes. This excludes separately billable procedures. Critical care time (if documented) is secondary to the patient having high probability of clinically significant/life threatening deterioration in the patient's condition which required my urgent intervention. Impression: 1. Headache 2. Elevated blood pressure Dispo: Discharge home This note was generated with WinAd dictation software. It may contain incorrect words, spelling, and punctuation that were not noted in review of the chart prior to signing. Lab Data Labs: Laboratory Results - last 24 hr 01/09/24 00:35 WBC 9.1 RBC 4.99 Hgb 13.8 Hct 42.2 MCV 84.6 MCH 27.7 MCHC 32.7 RDW Std Deviation 39.8 RDW Coeff of Jase 12.9 Plt Count 281 MPV 9.0 Immature Gran % (Auto) 1.500 H Neut % (Auto) 63.2 Lymph % (Auto) 26.9 [place] % (Auto) 6.8 Eos % (Auto) 1.0 Baso % (Auto) 0.6 Absolute Neuts (auto) 5.7 Absolute Lymphs (auto) 2.44 Nucleated RBC % 0 Sodium 142 Potassium 4.0 Chloride 109 H Carbon Dioxide 25.0 Anion Gap 8 BUN 15 Creatinine 0.78 Estim Creat Clear Calc 74.58 Est GFR (MDRD) Af Amer 98 Est GFR (MDRD) Non-Af 81 BUN/Creatinine Ratio 19.3 Glucose 138 H Calcium 9.2 Troponin I High Sens 3 Radiography Diagnostic Testing: Clinical Impression(s) from Imaging Studies Chest X-Ray 01/09/24 00:26 IMPRESSION: No radiographic evidence of acute cardiopulmonary disease. Electronically Signed: Quinn Leon MD at 1:29 EDT , Discharge Plan Triage Chief Complaint: Hypertension ED Provider: René Piedra Dx/Rx/DC Orders Prescriptions: No Action cholecalciferol (vitamin D3) [Vitamin D3] 50 mcg (2,000 unit) capsule 50 mcg PO DAILY ascorbate calcium (vitamin C) 500 mg tablet 500 mg PO DAILY omega-3 fatty acids 1,000 mg capsule 1,000 mg PO DAILY aspirin 81 mg tablet,chewable 81 mg PO QDAY coenzyme Q10 60 mg tablet 60 mg PO QDAY meloxicam 15 mg tablet 15 mg PO QDAY Qty: 30 0RF prednisone 10 mg tablet 10 mg PO TID Qty: 15 0RF lisinopril 5 mg tablet 2.5 mg PO BID Qty: 60 3RF lovastatin 20 mg tablet See Rx Instructions PO QDAY Qty: 135 1RF Rx Instructions: orally daily; Alternate 40mg daily with 20mg daily on opposite days. Primary Care Provider: Melany Nichols Referrals: Melany Nichols MD [Primary Care Provider] - Print Language: Greek
--- NOTE | 2024-01-09 00:26 | EKG12_ITS ---
Test Reason : DYSRHYTHMIA Blood Pressure : */* mmHG Vent. Rate : 104 BPM Atrial Rate : 104 BPM P-R Int : 120 ms QRS Dur : 84 ms QT Int : 354 ms P-R-T Axes : 65 71 35 degrees QTcB Int : 465 ms Sinus tachycardia Possible Left atrial enlargement Nonspecific ST abnormality Abnormal ECG Confirmed by KYLEE REGALADO, TOMAS ([id number]), state editor BENJAMIN GOYAL ([id number]) on 01/09/2024 1:55:33 PM Referred By: Confirmed By: TOMAS PICHARDO MD
--- NOTE | 2024-01-09 00:26 | RAD_ITS ---
EXAM: XR CHEST, 1 VIEW CLINICAL INDICATION: elevated BP TECHNIQUE: Frontal view of the chest. COMPARISON: No relevant prior studies available. FINDINGS: LUNGS AND PLEURAL SPACES: Unremarkable. No consolidation or edema. No pneumothorax. No effusion. HEART: Unremarkable. Cardiac silhouette not enlarged. MEDIASTINUM: Central airways and mediastinal contour are unremarkable. BONES/JOINTS: Unremarkable. No acute fracture. SOFT TISSUES: Unremarkable. RAD/Chest 1 View (Portable) IMPRESSION: No radiographic evidence of acute cardiopulmonary disease. Electronically Signed: Quinn Leon MD at 1:29 EDT ,
[2024-01-09 01:05] LABS: Anion Gap 8 (5-15); BUN 15 mg/dL (7-18); BUN/Creat Ratio 19.3 RATIO (10-20); Calcium,Total 9.2 mg/dL (8.5-10.1); Chloride 109 mmol/L (98-107); Creatinine, Serum 0.78 mg/dL (0.55-1.02); EST Glomerular Filtration Rate 81 mL/min (>60); Est Glom Filt Rate - Afr Amer 98 mL/min (>60); Estimated Creatinine Clearance 74.58 ml/min; Glucose 138 mg/dL (74-106); Sodium Level 142 mmol/L (136-145); Troponin-I HS 3 pg/mL (3.0-54.0)
[2024-01-09 01:11] LABS: Absolute Lymphocyte Count 2.44 X10^3/uL (0.83-4.51); Absolute Neutrophil Count 5.7 X10^3/uL (2.0-7.7); Basophil# 0.05 X10^3/uL; Basophil% 0.6 % (0-1); Eosinophil# 0.09 X10^3/uL; Hematocrit 42.2 % (37-47); Hemoglobin 13.8 g/dL (12.0-15.0); Lymphocyte # 2.44 X10^3/ul (0.83-4.51); Lymphocyte % 26.9 % (19-41); Mean Corp Hgb Conc 32.7 g/dL (32-36); Mean Corpuscular Hgb 27.7 pg (27.0-32.0); Mean Corpuscular Volume 84.6 fL (81-99); Monocyte# 0.62 X10^3/uL; Monocyte% 6.8 % (0-10); NRBC Flagged by Analyzer 0 % (0-5); Neutrophil # 5.74 X10^3/uL (2.7-7.7); Neutrophil % 63.2 % (47-70); Platelet Count 281 K/mm3 (150-450); RBC Distribution Width CV 12.9 % (11.6-14.6); RBC Distribution Width SD 39.8 fl (35.1-43.9); Red Blood Count 4.99 M/mm3 (4.2-5.4); White Blood Count 9.1 K/mm3 (4.4-11.0)
--- OUTSIDE RECORDS SUMMARY | 2024-01-09 01:24 | XMS RPT_ITS | CCD ---
Author Organization [facility] Care Team Providers Care Cell Biology Scientist Name Role Phone Kaitlin Tejeda Primary Care Provider Results Test Name Value Interpretation Reference Range Facility DIXON [facility]REW DIGITAL SCREEN BILA TERALOrdered By: Kaitlin Tejeda on 12-18-2020 Patient Name: EUGENIA ORTIZ Mammography ACCESSION EXAM DATE/TIME PROCEDURE ORDERING PROVIDER [id number] 12/18/2020 09:40 EDT MG Breast Tomosynthesis MD INKHIL, KAITLIN BI Igor SIDDIQI CPT code 91064 [id number] Reason For Exam (MG Breast Tomosynthesis BI Scr) SCREENING Report TIME SINCE LAST MAMMOGRAM: Last mammogram was performed 1 year ago. REASON FOR EXAM: screening, asymptomatic. PROCEDURE: MG BREAST TOMOSYNTHESIS BL SCR: DECEMBER 18, 2020 - 2D/3D Procedure 3D Bilateral CC and MLO view(s) were taken. 2D Bilateral CC and MLO view(s) were taken. Prior study comparison: December 16, 2019, bilateral MG breast tomosynthesis bl scr performed at [facility]. November 15, 2017, bilateral MG breast tomosynthesis bl scr performed at [facility]. October 07, 2016, bilateral MG mammogram digital screening performed at [facility]. TISSUE DENSITY: BIRADS B - There are scattered fibroglandular densities. . PATIENT CANCER HISTORY: No Personal History of Cancer FAMILY CANCER HISTORY: Father Skin Cancer (Non-Melanoma) age 45 Maternal Grandfather Lung Cancer age 62 Paternal Grandfather Lung Cancer age 62 FINDINGS: No suspicious masses, architectural distortions or suspiciously clustered microcalcifications are identified. There is no evidence of skin thickening or nipple retraction. Benign bilateral breast calcifications are seen. There are postoperative changes of the breasts. There are no significant changes when compared with prior studies. No mammographic evidence of malignancy. Markings on images: BB's = Nipples; skin lesions Open [place] = Palpable Line = Scar Mammography Report 2D digital mammography and tomosynthesis imaging were performed and reviewed with CAD. ASSESSMENT: Category 1 Negative RECOMMENDATION: Routine screening mammogram of both breasts in 1 year. . Report Dictated on Cancer Risk Assessment: This risk assessment is based on patient provided information collected in a risk survey taken at the time of this examination. Lifetime breast cancer risk: Average Risk - If greater than or equal to 20%, consider annual mammogram and annual screening Breast MRI or follow up in high risk clinic. A score of Average Risk indicates a score of less than 20%. Is the patient at elevated risk based on the HBOC criteria? No (Hereditary Breast and Ovarian Cancer) - If yes, consider genetic counseling and testing with high risk follow up. Is the patient at elevated risk based on the Monroe Syndrome criteria? No - If yes, consider genetic counseling and testing with high risk follow up. --- Final --- Signed Date and Time: 12/18/2020 10:56 am Signed by: MD RACQUEL, CASTILLO MATSON Work Phone: [facility] Incoming Radiology Results From [facility] - 12/18/2020 10:59 AM EDT Patient Name: EUGENIA ORTIZ Mammography ACCESSION EXAM DATE/TIME PROCEDURE ORDERING PROVIDER [id number] 12/18/2020 09:40 EDT MG Breast Tomosynthesis MD NIKHIL, KAITLIN SIDDIQI CPT code [id number] Reason For Exam (MG Breast Tomosynthesis BI Scr) SCREENING Report TIME SINCE LAST MAMMOGRAM: Last mammogram was performed 1 year ago. REASON FOR EXAM: screening, asymptomatic. PROCEDURE: MG BREAST TOMOSYNTHESIS BL SCR: DECEMBER 18, 2020 - 2D/3D Procedure 3D Bilateral CC and MLO view(s) were taken. 2D Bilateral CC and MLO view(s) were taken. Prior study comparison: December 16, 2019, bilateral MG breast tomosynthesis bl scr performed at [facility]. November 15, 2017, bilateral MG breast tomosynthesis bl scr performed at [facility]. October 07, 2016, bilateral MG mammogram digital screening performed at [facility]. TISSUE DENSITY: BIRADS B - There are scattered fibroglandular densities. . PATIENT CANCER HISTORY: No Personal History of Cancer FAMILY CANCER HISTORY: Father Skin Cancer (Non-Melanoma) age 45 Maternal Grandfather Lung Cancer age 62 Paternal Grandfather Lung Cancer age 62 FINDINGS: No suspicious masses, architectural distortions or suspiciously clustered microcalcifications are identified. There is no evidence of skin thickening or nipple retraction. Benign bilateral breast calcifications are seen. There are postoperative changes of the breasts. There are no significant changes when compared with prior studies. No mammographic evidence of malignancy. Markings on images: BB's = Nipples; skin lesions Open [place] = Palpable Line = Scar Mammography Report 2D digital mammography and tomosynthesis imaging were performed and reviewed with CAD. ASSESSMENT: Category 1 Negative RECOMMENDATION: Routine screening mammogram of both breasts in 1 year. . Report Dictated on Cancer Risk Assessment: This risk assessment is based on patient provided information collected in a risk survey taken at the time of this examination. Lifetime breast cancer risk: Average Risk - If greater than or equal to 20%, consider annual mammogram and annual screening Breast MRI or follow up in high risk clinic. A score of Average Risk indicates a score of less than 20%. Is the patient at elevated risk based on the HBOC criteria? No (Hereditary Breast and Ovarian Cancer) - If yes, consider genetic counseling and testing with high risk follow up. Is the patient at elevated risk based on the Monroe Syndrome criteria? No - If yes, consider genetic counseling and testing with high risk follow up. --- Final --- Signed Date and Time: 12/18/2020 10:56 am Signed by: MD RACQUEL, CASTILLO [facility] Work Phone: [employer] Work Phone: MG Breast Tomosynthesis Scr Blon 10-08-2021 MG Breast Tomosynthesis Scr Bl Patient Name: EUGENIA ORTIZ Mammography ACCESSION EXAM DATE/TIME PROCEDURE ORDERING PROVIDER [id number] 12/18/2020 09:40 EDT MG Breast Tomosynthesis MD NIKHIL, KAITLIN BI Igor SIDDIQI CPT code [id number] Reason For Exam (MG Breast Tomosynthesis BI Scr) SCREENING Report TIME SINCE LAST MAMMOGRAM: Last mammogram was performed 1 year ago. REASON FOR EXAM: screening, asymptomatic. PROCEDURE: MG BREAST TOMOSYNTHESIS BL SCR: DECEMBER 18, 2020 - 2D/3D Procedure 3D Bilateral CC and MLO view(s) were taken. 2D Bilateral CC and MLO view(s) were taken. Prior study comparison: December 16, 2019, bilateral MG breast tomosynthesis bl scr performed at [facility]. November 15, 2017, bilateral MG breast tomosynthesis bl scr performed at [facility]. October 07, 2016, bilateral MG mammogram digital screening performed at [facility]. TISSUE DENSITY: BIRADS B - There are scattered fibroglandular densities. . PATIENT CANCER HISTORY: No Personal History of Cancer FAMILY CANCER HISTORY: Father Skin Cancer (Non-Melanoma) age 45 Maternal Grandfather Lung Cancer age 62 Paternal Grandfather Lung Cancer age 62 FINDINGS: No suspicious masses, architectural distortions or suspiciously clustered microcalcifications are identified. There is no evidence of skin thickening or nipple retraction. Benign bilateral breast calcifications are seen. There are postoperative changes of the breasts. There are no significant changes when compared with prior studies. No mammographic evidence of malignancy. Markings on images: BB's = Nipples; skin lesions Open [place] = Palpable Line = Scar Mammography Report 2D digital mammography and tomosynthesis imaging were performed and reviewed with CAD. ASSESSMENT: Category 1 Negative RECOMMENDATION: Routine screening mammogram of both breasts in 1 year. . Report Dictated on Cancer Risk Assessment: This risk assessment is based on patient provided information collected in a risk survey taken at the time of this examination. Lifetime breast cancer risk: Average Risk - If greater than or equal to 20%, consider annual mammogram and annual screening Breast MRI or follow up in high risk clinic. A score of Average Risk indicates a score of less than 20%. Is the patient at elevated risk based on the HBOC criteria? No (Hereditary Breast and Ovarian Cancer) - If yes, consider genetic counseling and testing with high risk follow up. Is the patient at elevated risk based on the Monroe Syndrome criteria? No - If yes, consider genetic counseling and testing with high risk follow up. Final Signed Date and Time: 12/18/2020 10:56 am Signed by: MD CLEMENT ANN C. Normal [facility] CT CARDIAC SCORINGon 020 CT CARDIAC SCORING Patient Name: EUGENIA ORTIZ STUDY: CT CARDIAC SCORING; 01/02/2020 3:41 pm INDICATION: Family history of ischemic heart disease and other diseases of the circulatory system. COMPARISON: None. ACCESSION NUMBER(S): [id number] ORDERING CLINICIAN: KAITLIN TEJEDA TECHNIQUE: Using prospective ECG gating, CT scan of the coronary arteries was performed without intravenous contrast. Coronary calcium scoring was performed according to the method of Agatston. FINDINGS: The score and distribution of calcium in the coronary arteries is as follows: LM 0, 0 LAD 0, 0 LCx 0, 0 RCA 0, 0 Total 0 The visualized ascending thoracic aorta measures 3.1 cm in diameter. The heart is normal in size. No pericardial effusion is present. No gross evidence of mediastinal or hilar lymphadenopathy or masses is identified. The visualized segments of the lungs are normally expanded. The main pulmonary artery, right and left pulmonary artery are normal in size. The visualized subdiaphragmatic structures appear intact. IMPRESSION: 1. Coronary artery calcium score of 0*. *Coronary Artery Agatston score Score risk Very low 1-99 Mildly increased 100-299 Moderately increased >300 Moderate to severely increased >800 Natacha et al. JCCT 2016 (http://dx.doi.org/10.1 016/j.jcct.2016.11.003) GROVER 10-Year CHD Risk with Coronary Artery Calcification can be calcuate using link below [email or web address]://[email or web address]-[email or web address]/[email or web address]/[email or web address].aspx Deana et al. JACC 2015 (http://dx.doi.org/10.1 016/j.j acc.2014.08.035) Electronically signed by: BAILEY SHIELDS MD Normal [facility] Encounters Encounter Date Encounter Type Care Provider Facility Start: 12-18-2020 End: 12-18-2020 Subsequent hospital visit by physician Kaitlin Tejeda MD Work Phone: [facility] Comment on above: Arrived Start: 12-16-2019 End: 12-16-2019 Subsequent hospital visit by physician Kaitlin Tejeda Work Phone: [facility] Comment on above: Arrived Procedures Date Procedure Procedure Detail Performing Clinician Start: 12-18-2020 Screening digital br east tomosynthesis bi Kaitlin Tejeda MD Work Phone: Plan of Treatment Date Care Activity Detail Author Start: 12-15-2021 Screening for malign ant neoplasm of breast Breast cancer screen [facility] Work Phone: Start: 11-11-2020 Influenza vaccination Flu vaccine (# 1) [facility] Work Phone: Start: 11-16-2019 Screening for malign ant neoplasm of breast Breast cancer screen [place], [place] Start: 11-12-2019 Influenza vaccination Flu vaccine (# 1) [place], [place] Start: 12-29-2015 Screening for malign ant neoplasm of colon Colon cancer screen colonoscopy [place], [place] Start: 12-29-2015 Shingles Vaccine (1 of 2) Rose gles Vaccine (1 of 2) [place], [place] Start: 2010 Screening for malign ant neoplasm of colon Colon cancer screen colonoscopy [facility] Work Phone: Start: 2005 Lipid panel Lipid screen [place], [place] Start: 12-29-1995 Screening for malign ant neoplasm of cervix [facility] Work Phone: Start: 1986 Screening for malign ant neoplasm of cervix [place], [place] Start: 1984 DTaP/Tdap/Td vaccine (1 - Tdap) DTaP/Tdap/Td vaccine (1 - Tdap) [place], [place] Start: 1980 HIV screening HIV screen Giovana Ritter [place], [place] Start: 1977 COVID-19 Vaccine (1) COVID-19 Vaccin e (1) [facility] Work Phone: Start: 1965 Hepatitis C screening Hepatitis C micaela MATSON Work Phone: End: 12-16-2019 Screening digital breast tomosynthesis bi Dixon Andrew Digital Screen Bilateral Imaging Routine Once for 1 Occurrences starting 12/16/2019 until 12/16/2019 [place], [place] Comment on above: Once for 1 Occurrenc es starting 12/16/2019 until 12/16/2019 Screening digital br east tomosynthesis bi Dixon Andrew Digital Screen Bilateral Imaging Routine 12/16/2019 2:53 PM EDT [place], [place] Social History Date Type Detail Facility Tobacco smoking stat us MOIS Unknown if ever smoked [place], [place] Start: 1965 Sex Assigned At Not on file M [place], [place] Advance Directives No Advanced Directives Records FoundDocuments on File Type Date Recorded Patient Manager Regional Sales Expl anation ACP-Advance Directive ACP-Power of Supervisor Baking Summary Purpose Family History No Family History Records FoundNo Family History Records Found Additional Source Comments INFORMATION SOURCE (unrecogn ized section and content) DATE CREATED AUTHOR 01/04/2020 [facility] DATE CREATED AUTHOR AUTHOR'S ORGANIZ ATION 12/24/2020 [facility] FOR RECORDS PERTAINING TO PATIENTS [...] BE BASED ON THE PRIMARY CLINICAL RECORDS. [employer] provides no warranty or guarantee of the accuracy or completeness of information in this document.
[2024-01-09 02:27] VITALS: BP 151/90; PULSE 97; RESP 18; O2SAT 96
[2024-01-09 03:21] VITALS: BP 140/88; PULSE 87; RESP 18; TEMP 36.7; O2SAT 100
== END 2024-01-09 03:22 | disposition home or self-care (01) ==
PROVIDERS: Emergency Provider Emergency Medicine; PCP Internal Medicine; Visit Provider Emergency Medicine
DX: R51.9 Headache, unspecified (principal); R03.0 Elevated blood-pressure reading, without diagnosis of hypertension; Z87.891 Personal history of nicotine dependence
CPT/HCPCS: 71045; 80048; 84484; 85025; 93005; 99284; A4216

== ENCOUNTER → 2024-05-21 | Outpatient (CLI) | payer OTHER, SELFPAY ==
--- NOTE | 2024-05-21 07:45 | BI_ITS ---
PROCEDURE: SCRN MAMM (CAD)W/FLOYD BILAT REASON FOR EXAM: F, Age 58 y/o , SCREENING. No family history of breast cancer. TECHNIQUE: Bilateral screening digital breast tomosynthesis with 2D and 3D images. Computer aided detection. COMPARISON: 03/21/2023, 01/21/2022 FINDINGS: There are scattered areas of fibroglandular density. No suspicious masses, areas of developing architectural distortion, or suspicious calcifications. BI/SCRN MAMM (CAD)W/FLOYD BILAT IMPRESSION: There is no mammographic evidence of malignancy. BI-RADS 1: NEGATIVE. RECOMMEND ANNUAL MAMMOGRAPHIC SCREENING. Follow-up code: Routine Follow-up. The patient will be notified of the results by letter. Reading Location: [id number]
== END | disposition home or self-care (01) ==
LOC: OPBI 07:38
PROVIDERS: PCP Internal Medicine; Referring Provider Nurse Practitioner Women's Health; Visit Provider Nurse Practitioner Women's Health
DX: Z12.31 Encounter for screening mammogram for malignant neoplasm of breast (principal)
CPT/HCPCS: 77063; 77067

== ENCOUNTER → 2024-06-26 | Outpatient (CLI) | payer OTHER, SELFPAY ==
[2024-06-26 17:56] LABS: Magnesium 2.4 mg/dL (1.5-2.2); Thyroid Stim Hormone (TSH) 0.557 uIU/mL (0.300-4.200)
[2024-06-26 18:06] LABS: Anion Gap 12 (5-15); BUN 20 mg/dL (4-19); BUN/Creat Ratio 26.5 RATIO (10-20); Calcium,Total 9.7 mg/dL (7.6-11.0); Chloride 101 mmol/L (98-108); Creatinine, Serum 0.75 mg/dL (0.70-1.20); EST Glomerular Filtration Rate 92 (>60); Glucose 87 mg/dL (70-99); Potassium 4.1 mmol/L (3.3-5.1); Sodium Level 137 mmol/L (133-145)
== END | disposition home or self-care (01) ==
LOC: LAB 16:16
PROVIDERS: PCP Internal Medicine; Referring Provider Internal Medicine Cardiovascular Disease; Visit Provider Internal Medicine Cardiovascular Disease
DX: I49.9 Cardiac arrhythmia, unspecified (principal)
CPT/HCPCS: 36415; 80048; 83735; 84443

== ENCOUNTER → 2024-07-09 | Outpatient (CLI) | payer OTHER, SELFPAY ==
--- NOTE | 2024-07-09 12:52 | ECHOD_ITS ---
Reason For Study Reason For Study: Arrhythmia Procedure This was a 2D Doppler, Color Flow transthoracic echocardiogram. Exam performed in department. Left Ventricle Normal LV size. Left ventricular systolic function is normal. The left ventricular ejection fraction is 65 %. Stage 1 diastolic dysfunction. No regional wall motion abnormalities noted. Right Ventricle Normal RV size. Normal systolic function. Atria Normal left atrium. Normal right atrium. Mitral Valve Normal mitral valve. Tricuspid Valve Normal tricuspid valve. Mild (1+) tricuspid valve insufficiency. Pulmonary artery systolic pressure is 30 mmHg. Aortic Valve Trisinus/trileaflet aortic valve. Pulmonic Valve Normal pulmonic valve. Great Vessels Normal aortic root. The pulmonary artery is normal size. Inferior vena cava collapse with respiration. Pericardium/Pleural No pericardial effusion. MMode/2D Measurements & Calculations LVIDd: 4.5 cm IVSd: 0.85 cm Ao root diam: 2.4 cm LVIDs: 2.4 cm LVPWd: 0.96 cm RVDd: 2.8 cm FS: 46.0 % LAV(MOD-bp): 30.5 ml LVAd ap4: 22.1 cm2 SV(MOD-sp4): 43.3 ml LAV(MOD-bp) Indexed: 17.6 ml/m2 LVLd ap4: 6.4 cm SI(MOD-sp4): 25.0 ml/m2 LAV(MOD-sp2): 28.0 ml EDV(MOD-sp4): 64.0 ml LAV(MOD-sp4): 29.0 ml EDV(sp4-el): 65.4 ml LVAs ap4: 10.8 cm2 LVLs ap4: 4.9 cm ESV(MOD-sp4): 20.6 ml ESV(sp4-el): 20.3 ml EF(MOD-sp4): 67.8 % EF(sp4-el): 68.9 % SV(sp4-el): 45.1 ml LA A4 area: 13.7 cm2 LA dimension(2D): 3.4 cm RA A4 area: 11.9 cm2 TAPSE: 2.2 cm Time Measurements MV dec time: 0.27 sec Doppler Measurements & Calculations MV E max arie: 67.0 cm/sec Lat Peak E' Arie: 12.6 cm/sec Med Peak E' Arie: 8.0 cm/sec MV A max arie: 75.7 cm/sec E/E' lat: 5.3 E/E' med: 8.3 MV E/A: 0.88 Ao V2 max: 175.6 cm/sec LV V1 max: 125.5 cm/sec MV dec slope: 243.6 cm/sec2 Ao max P.3 mmHg LV V1 max P.3 mmHg Ao V2 mean: 116.1 cm/sec Ao mean P.2 mmHg Ao V2 VTI: 32.7 cm PA V2 max: 96.3 cm/sec TR max arie: 259.1 cm/sec TR max P.9 mmHg ECHO/Echo Complete Interpretation Summary Normal LV size. Left ventricular systolic function is normal. The left ventricular ejection fraction is 65 %. Stage 1 diastolic dysfunction. Pulmonary artery systolic pressure is 30 mmHg. Ordering Physician: Pop Lemon Referring Physician: Melany Nichols Performed By: Anamika Overton, RDCS, RVT
== END | disposition home or self-care (01) ==
LOC: CVS 12:52
PROVIDERS: PCP Internal Medicine; Referring Provider Internal Medicine Cardiovascular Disease; Visit Provider Internal Medicine Cardiovascular Disease
DX: I49.9 Cardiac arrhythmia, unspecified (principal)
CPT/HCPCS: 93306

== ENCOUNTER → 2024-11-20 | Outpatient (CLI) | payer OTHER, SELFPAY ==
[2024-11-20 14:15] LABS: Hematocrit 42.9 % (37-47); Hemoglobin 14.2 g/dL (12.0-15.0); Immature Granulocytes Count 0.030 X10^3/uL (0.0-0.0); Mean Corp Hgb Conc 33.1 g/dL (32-36); Mean Corpuscular Volume 84.3 fL (81-99); Mean Platelet Vol. 9.3 fl (6.2-12.0); NRBC Flagged by Analyzer 0 % (0-5); Platelet Count 322 K/mm3 (150-450); RBC Distribution Width CV 12.9 % (11.6-14.6); RBC Distribution Width SD 39.2 fl (35.1-43.9); Red Blood Count 5.09 M/mm3 (4.2-5.4); White Blood Count 5.6 K/mm3 (4.4-11.0)
[2024-11-20 15:36] LABS: Vitamin D,25 Hydroxy 42.2 ng/mL (30-100)
== END | disposition home or self-care (01) ==
PROVIDERS: PCP Internal Medicine; Referring Provider Nurse Practitioner Family; Visit Provider Internal Medicine
DX: M19.90 Unspecified osteoarthritis, unspecified site (principal); M54.9 Dorsalgia, unspecified; M65.4 Radial styloid tenosynovitis [de Quervain]; I10 Essential (primary) hypertension; I49.9 Cardiac arrhythmia, unspecified; E88.819 Insulin resistance, unspecified; E78.2 Mixed hyperlipidemia; M85.80 Other specified disorders of bone density and structure, unspecified site; G57.00 Lesion of sciatic nerve, unspecified lower limb; E07.9 Disorder of thyroid, unspecified
CPT/HCPCS: 82306; 85007; 85025; 85652

== ENCOUNTER → 2025-03-11 | Outpatient (CLI) | payer OTHER, SELFPAY ==
--- NOTE | 2025-03-11 09:00 | BI_ITS ---
EXAM: DIAG MAMM W/CAD, BILAT N/A CLINICAL HISTORY: F, Age 59 y/o , BREAST PAIN TECHNIQUE: Procedure Code: [id number] Modality: MG Procedure: DIAG MAMM W/CAD, BILAT. COMPARISON: Prior exam(s) dated 05/21/2024. FINDINGS: TISSUE DENSITY: There are scattered areas of fibroglandular density. Bilateral Breast Mammographic Findings: No significant masses, calcifications or other abnormalities are identified. Stable punctate and lucent centered calcifications. No interval change since the previous study, no new suspicious findings BI/DIAG MAMM W/CAD, BILAT IMPRESSION: Stable mammogram, no suspicious abnormalities. OVERALL FINAL ASSESSMENT BI-RADS 1: NEGATIVE RECOMMENDATION: Routine annual follow-up in 1 Year Additional Recommendation none A letter with findings and recommendations will be mailed to the patient. Reading Location: [id number]
== END | disposition home or self-care (01) ==
LOC: OPBI 08:54
PROVIDERS: PCP Internal Medicine; Referring Provider Nurse Practitioner Family; Visit Provider Nurse Practitioner Family
DX: N64.4 Mastodynia (principal)
CPT/HCPCS: 77062; 77066; G0279